=== PATIENT | female | born 1970 | race Caucasian/White ===

== ENCOUNTER → 2017-08-26 | Outpatient (CLI) | payer BC ==
[~2017-08-26] VITALS: Ht 170.2 cm; Wt 103.8 kg
[~2017-08-26] MED LIST: BUPROPION HCL150 M2 PO; BUSPIRONE HCL5 MG PO; CATAPRES0.1 MG PO; CELEXA40 MG PO; CEPHALEXIN500 MG PO; CLONAZEPAM1 MG PO; COZAAR100 MG PO; CYMBALTA60 MG PO; DEPAKENE250 MG PO; DEPAKOTE500 MG PO; DIVALPROEX SOD500 MG PO; HYZAAR 100-21 TABLET PO; JANUMET 50/51 TABLET PO; KEFLEX500 MG PO; KLONOPIN1 MG PO; LOSARTAN-HCTZ1 EACH PO; MIRENA1 EACH IY; NAPROSYN500 MG PO; NORCO 5/3251 TABLET PO; NORVASC5 MG PO; SUPREP BOWEL P354 ML PO; VOLTAREN75 MG PO; ZOLOFT50 MG PO; [UNRECOGNIZED DRUG - REMARK]
== END | disposition home or self-care (01) ==
LOC: AMB 06:41
PROVIDERS: Anesthesiology; Internal Medicine
DX: D12.2 Benign neoplasm of ascending colon (principal); D12.3 Benign neoplasm of transverse colon; K62.5 Hemorrhage of anus and rectum; K64.8 Other hemorrhoids; R14.0 Abdominal distension (gaseous); I10 Essential (primary) hypertension; E11.9 Type 2 diabetes mellitus without complications; Z79.84 Long term (current) use of oral hypoglycemic drugs; K21.9 Gastro-esophageal reflux disease without esophagitis; E78.1 Pure hyperglyceridemia; E66.9 Obesity, unspecified; Z68.36 Body mass index [BMI] 36.0-36.9, adult; G47.33 Obstructive sleep apnea (adult) (pediatric); Z98.1 Arthrodesis status; Z87.891 Personal history of nicotine dependence; Z83.79 Family history of other diseases of the digestive system; Z83.3 Family history of diabetes mellitus; Z88.5 Allergy status to narcotic agent; Z88.8 Allergy status to other drugs, medicaments and biological substances
CPT/HCPCS: 81025; 82948; 88305; 93005; J2250; J3010